=== PATIENT | female | born 1930 | race Caucasian/White ===

== ENCOUNTER 2017-07-17 13:39 | Inpatient (IN) | END 2017-07-20 19:05 | DRG 380 | DX: K22.11 Ulcer of esophagus with bleeding (principal); G93.40 Encephalopathy, unspecified; R40.3 Persistent vegetative state; J18.9 Pneumonia, unspecified organism; Z99.11 Dependence on respirator [ventilator] status; Z93.0 Tracheostomy status; E87.5 Hyperkalemia; I48.2 Chronic atrial fibrillation; D62 Acute posthemorrhagic anemia; Z93.1 Gastrostomy status; E11.9 Type 2 diabetes mellitus without complications; G40.909 Epilepsy, unspecified, not intractable, without status epilepticus; Z79.4 Long term (current) use of insulin; E03.9 Hypothyroidism, unspecified; K21.9 Gastro-esophageal reflux disease without esophagitis; I10 Essential (primary) hypertension; I16.0 Hypertensive urgency; Y95 Nosocomial condition; K44.9 Diaphragmatic hernia without obstruction or gangrene; J06.9 Acute upper respiratory infection, unspecified ==